=== PATIENT | female | born 1995 | race Caucasian/White ===

== ENCOUNTER 2024-09-11 09:36 | Emergency (ER) | payer BC ==
[~2024-09-11] VITALS: Ht 165.1 cm; Wt 97.1 kg
[2024-09-11 10:40] LABS: BASOPHILS % (AUTO) 0.4 % (0.0-2.0); EOSINOPHILS # (AUTO) 0.2 K/uL (0.0-0.7); EOSINOPHILS % (AUTO) 3.3 % (0.0-6.0); HEMATOCRIT 41 % (33-45); HEMOGLOBIN 13.8 g/dL (11.5-14.8); LYMPHOCYTES # (AUTO) 1.1 K/uL (0.8-4.8); LYMPHOCYTES % (AUTO) 23.8 % (20.0-44.0); MEAN CORPUSCULAR HEMOGLOBIN 30 PG (26.0-33.0); MEAN CORPUSCULAR HGB CONC 34 g/dl (31.0-36.0); MEAN CORPUSCULAR VOLUME 87 fL (82-100); MONOCYTES # (AUTO) 0.6 K/uL (0.1-1.30); MONOCYTES % (AUTO) 12.9 % (2.0-12.0); NEUTROPHILS # (AUTO) 2.7 K/uL (1.8-8.9); NEUTROPHILS % (AUTO) 59.6 % (43.0-81.0); PLATELET COUNT (AUTO) 285 K/uL (150-450); RED BLOOD CELL COUNT(AUTO) 4.69 MIL/uL (4.0-5.2); RED CELL DISTRIBUTION WIDTH 14.7 % (11.5-15.0); WHITE BLOOD COUNT (AUTO) 4.5 K/uL (4.3-11.0)
[2024-09-11 10:47] LABS: CALCIUM, SERUM 9.1 mg/dL (8.5-10.1); CREATININE 0.8 mg/dL (0.6-1.3)
[2024-09-11 11:32] VITALS: BP 134/84; TEMP 98.3; O2SAT 98
== END 2024-09-11 11:33 | disposition home or self-care (01) ==
LOC: ER 09:46
DX: N93.8 Other specified abnormal uterine and vaginal bleeding (principal); J45.909 Unspecified asthma, uncomplicated
CPT/HCPCS: 36415; 76856-TC; 80048-TC; 84703-TC; 85025-TC

== ENCOUNTER 2024-10-15 11:53 | Emergency (ER) | payer BC ==
[~2024-10-15] VITALS: Ht 165.1 cm; Wt 104.3 kg
[2024-10-15 12:01] VITALS: BP 123/81; TEMP 98.3
[2024-10-15] MEDS ORDERED: AMOX-427 PO (12:13)
[2024-10-15 12:24] VITALS: O2SAT 99
== END 2024-10-15 12:25 | disposition home or self-care (01) ==
LOC: ER 12:00
DX: H66.91 Otitis media, unspecified, right ear (principal); J45.909 Unspecified asthma, uncomplicated